=== PATIENT | female | born 1955 | race Caucasian/White ===

== ENCOUNTER 2023-04-06 11:10 | Day surgery (SDC) | payer MEDICARE ==
[2023-03-31 15:43] VITALS: BMI 28.3
[2023-04-06] MEDS ORDERED: PROPOFOL 20 ML ONE (12:53)
[2023-04-06] MEDS ORDERED: fentaNYL 50 mcg/mL 1 mL Vial ONE ×2 (12:53→15:04)
[2023-04-06] MEDS ORDERED: Lidocaine 1% PF 5 ML VIAL ONE (12:54)
[2023-04-06] MEDS ORDERED: Bupivacaine PF 0.5% 30 ML VIAL ONE (13:17)
[2023-04-06] MEDS ORDERED: CEFAZOLIN 2 GM VIAL ONE (13:32)
[2023-04-06] MEDS ORDERED: Ondansetron PF 4 MG/2 ML Vial ONE (13:55)
[2023-04-06] MEDS ORDERED: Dexamethasone 4 mg/ml Vial ONE (13:55)
== END 2023-04-06 15:50 | disposition home or self-care (01) ==
LOC: CSHSDC 11:10
PROVIDERS: ATTEND Podiatrist Foot & Ankle Surgery
PROC: 0SGQ0JZ Fusion of Left Toe Phalangeal Joint with Synthetic Substitute, Open Approach (ICD-10-PCS; principal; 2023-04-06)
PROC: 0LNW0ZZ Release Left Foot Tendon, Open Approach (ICD-10-PCS; 2023-04-06)
PROC: 0QBP0ZZ Excision of Left Metatarsal, Open Approach (ICD-10-PCS; 2023-04-06)
DX: M77.42 Metatarsalgia, left foot (principal); M20.42 Other hammer toe(s) (acquired), left foot; I10 Essential (primary) hypertension; J45.909 Unspecified asthma, uncomplicated; K21.9 Gastro-esophageal reflux disease without esophagitis; Z88.8 Allergy status to other drugs, medicaments and biological substances; Z79.899 Other long term (current) drug therapy; Z88.6 Allergy status to analgesic agent
CPT/HCPCS: 28232; 28285; 28308 ×2; 73630; J3010; C1713; J1100; J2405; J2704; S0020